=== PATIENT | male | born 1960 | race Caucasian/White ===

== ENCOUNTER → 2024-11-16 | Outpatient (CLI) | payer OTHER, SELFPAY ==
--- NOTE | 2024-11-16 10:10 | XR_ITS ---
Examination: Abdomen sonogram, Limited Date and time of exam: November 16, 2024 1017 hours INDICATIONS: Elevated liver enzymes on laboratory examination October 14, 2024 Technique: Real-time childress scale transabdominal sonographic images of the upper abdomen obtained. Findings: Normal gallbladder Normal common bile duct 0.3 cm Pancreatic head 3.4 cm Liver 12.3 cm fatty infiltration no focal liver lesions Normal hepatopedal portal venous flow Patent IVC IMPRESSION: Fatty liver, no focal liver lesions Mildly prominent pancreas, clinical correlation advised, consider CT scan abdomen pelvis post intravenous contrast follow-up
== END | disposition home or self-care (01) ==
PROVIDERS: PCP Nurse Practitioner Adult Health; Referring Provider Nurse Practitioner Adult Health; Visit Provider Nurse Practitioner Adult Health
DX: K76.0 Fatty (change of) liver, not elsewhere classified (principal)
CPT/HCPCS: 76705

== ENCOUNTER → 2024-12-02 | Outpatient (CLI) | payer OTHER, SELFPAY ==
--- NOTE | 2024-12-02 11:30 | XR_ITS ---
Examination: Urinary bladder sonography complete TECHNIQUE: Grayscale sonographic images urinary bladder Date and time: December 02, 2024 1135 hours INDICATIONS: Elevated PSA on laboratory examination 2 months ago. FINDINGS: No bladder mass or bladder calculi Contracted urinary bladder Prostate 4.1 x 4.1 x 5.9 cm volume 51 cc Solid vascular nodule right lateral prostate 2.9 x 2.7 x 2.8 cm Solid nodule nonvascular left lateral prostate 13 x 11 x 14 mm IMPRESSION: Bilateral prostate nodules as above
== END | disposition home or self-care (01) ==
PROVIDERS: PCP Nurse Practitioner Adult Health; Referring Provider Nurse Practitioner Adult Health; Visit Provider Nurse Practitioner Adult Health
DX: N40.2 Nodular prostate without lower urinary tract symptoms (principal)
CPT/HCPCS: 76857

== ENCOUNTER → 2024-12-16 | Outpatient (CLI) | payer OTHER, SELFPAY ==
--- NOTE | 2024-12-16 13:30 | XR_ITS ---
Examination: CT abdomen with intravenous contrast CT pelvis with intravenous contrast 2-D coronal reconstructions 2-D sagittal reconstructions Date and time of exam:December 16, 2024 1407 hours INDICATIONS: Diagnosis alcoholic fatty liver. CTDI: vol (mGy) 6.28 DLP: (mGycm) 389 Technique: Multiple axial sections of the abdomen and pelvis have been obtained. 64 slice high-resolution scanner used. 3 mm axial sections have been obtained, post intravenous injection 60 cc [id number] 2-D sagittal, coronal reconstructions obtained. Low dose protocols were performed. One or more of the following dose reduction techniques were used; automated exposure control, adjustment of the mA and/or KV according to patient size, use of iterative reconstruction technique. Findings: 3 mm pulmonary nodule right lower lobe image 43 No focal liver lesions No gallstones No pancreatic mass No splenic or adrenal mass Bilateral benign renal cysts, no renal calculi or hydronephrosis No pericecal inflammatory change No bowel obstruction Scattered colonic diverticulosis Transverse prostate dimension 5.5 cm Suspicious for 13 mm right lobe prostate nodule Urinary bladder wall thickening up to 11 mm Moderate osteopenia IMPRESSION: 3 mm pulmonary nodule right lower lobe compatible consider PA lateral chest follow-up No CT findings of bowel obstruction or appendicitis Moderate prostatomegaly Suspicious for 13 mm right lobe prostate nodule, consider transrectal prostate sonography follow-up Urinary bladder wall thickening up to 11 mm, differential would include early lower urinary tract outflow obstruction secondary to prostatomegaly, cystitis, clinical correlation advised
== END | disposition home or self-care (01) ==
PROVIDERS: Referring Provider Nurse Practitioner Adult Health; Visit Provider Nurse Practitioner Adult Health
DX: R91.1 Solitary pulmonary nodule (principal); N40.0 Benign prostatic hyperplasia without lower urinary tract symptoms; N32.89 Other specified disorders of bladder
CPT/HCPCS: 74177; A4649; Q9967

== ENCOUNTER → 2025-03-09 | Outpatient (CLI) | payer OTHER, SELFPAY ==
--- NOTE | 2025-03-09 16:00 | XR_ITS ---
Examination: CT chest, without intravenous contrast. Sagittal and coronal 2-D reconstructions. Exam date and time: March 09, 2025, 1555 hours INDICATIONS: 3 mm pulmonary nodule right lower lobe on CT abdomen pelvis study December 16, 2024, smoking history 20 years CTDI:vol (mGy) 8.56 DLP: (mGycm) 313 Technique: Multiple 3.0 mm axial sections of the chest to been obtained. Bone and lung density settings are obtained. Sagittal and coronal 2-D reconstructions have been obtained. Low dose protocols were performed. One or more of the following dose reduction techniques were used; automated exposure control, adjustment of the mA and/or KV according to patient size, use of iterative reconstruction technique. Findings: No thoracic aortic aneurysm dilatation. Pulmonary artery segments are not enlarged. No paratracheal tracheobronchial or bronchopulmonary adenopathy. 4 mm pulmonary nodule right upper lobe image 83 3 mm pulmonary nodule right lower lobe image 200 No pneumonia or pulmonary edema No visualized liver or splenic lesion No gallstones No pancreatic mass Partial visualization benign right renal cyst IMPRESSION: Noncalcified pulmonary nodules as above, with this study as baseline recommend 6 month follow-up CT chest without contrast.
== END | disposition home or self-care (01) ==
PROVIDERS: PCP Student in an Organized Health Care Education/Training Program; Referring Provider Student in an Organized Health Care Education/Training Program; Visit Provider Student in an Organized Health Care Education/Training Program
DX: R91.8 Other nonspecific abnormal finding of lung field (principal)
CPT/HCPCS: 71271

== ENCOUNTER → 2025-03-24 | Outpatient (BNVA) | payer OTHER, SELFPAY | END | disposition home or self-care (01) | PROVIDERS: Visit Provider Urology | DX: N40.1 Benign prostatic hyperplasia with lower urinary tract symptoms (principal); N13.8 Other obstructive and reflux uropathy; R97.20 Elevated prostate specific antigen [PSA]; I10 Essential (primary) hypertension | CPT/HCPCS: 81003; 99212; G0463 ==

== ENCOUNTER → 2025-05-02 | Outpatient (BNVA) | payer OTHER, SELFPAY | END | disposition home or self-care (01) | PROVIDERS: Visit Provider Urology | DX: N42.89 Other specified disorders of prostate (principal); N40.1 Benign prostatic hyperplasia with lower urinary tract symptoms; N13.8 Other obstructive and reflux uropathy | CPT/HCPCS: 55700; 76942; 81003; 96372; A4649; J1580; J3490; A9270 ==